=== PATIENT | female | born 1985 | race Caucasian/White ===

== ENCOUNTER 2019-02-05 00:39 | Emergency (ER) | payer OTHER ==
[2019-02-05] MEDS ORDERED: Ondansetron PF 4 MG/2 ML Vial ONE (01:08)
[2019-02-05] MEDS ORDERED: Morphine 10 MG/ML VIAL ONE (01:08)
[2019-02-05 01:53] LABS: Bacteria/HPF None Seen HPF (None Seen); Bilirubin Negative (Negative); Blood, Urine Trace (Negative); Clarity Clear (Clear); Glucose, Urine (Dipstick) Normal (Negative); Leukocyte Negative Leu/uL (Negative); Nitrite Negative (Negative); Protein, Urine (Dipstick) Negative (Neg-Trace); RBC/HPF 0-3 HPF (0-3); Squamous Epithelial 0-3 HPF (0-3); Urobilinogen Normal mg/dL (Less than 2); WBC/HPF 0-3 HPF (0-3)
[2019-02-05 02:01] LABS: Pregnancy Test - Urine (BHCG) Negative (Negative); Pregu Control Background? CLEAR/WHITE (CLR/WHITE); Pregu Control Bar Appear? YES (CONTROL BAR); Specific Gravity 1.005 (1.002-1.036)
[2019-02-05] MEDS ORDERED: Diazepam 5 MG TAB ONE (02:09)
[2019-02-05] MEDS ORDERED: Ketorolac Tromethamine 30 MG/ML VIAL ONE (02:10)
[2019-02-05] MEDS ORDERED: Ibuprofen 200 MG TAB ONE (02:10)
[2019-02-05] MEDS ORDERED: Morphine 4 MG/ML VIAL ONE (03:30)
--- NOTE | 2019-02-05 07:58 | CT ---
PRELIMINARY REPORT/[facility]/EMERGENCY AFTER HOURS PROCEDURE: PROCEDURE INFORMATION: Exam: CT Abdomen and pelvis without contrast Exam date and time: 02/05/2019 2:15 AM Clinical history: 33 years old, female; Patient HX: F34 presents to ED with C/O lower back pain that radiates down her R leg, onset 1400 today with associated nausea. Patient has chronic back pain, but reports that this pain is different and it feels like something is pinched. Patient reports that the pain worsened when she went to lie down. Denies injury or falls. Patient has 2 rods in her back from surgery for scoliosis. Reports that she had a baby 4 months ago by vaginal delivery and was stuck for her epidural 9 times. Patient had an mri done 3 weeks ago and told she had degenerative disc disease for which she will need cortisol shots. Denies bowel or bladder incontinence. Denies vaginal bleedin g and discharge. Denies fever, vomiting and abdominal pain TECHNIQUE: Imaging protocol: Computed tomography of the abdomen and pelvis without contrast. COMPARISON: No relevant prior studies available. FINDINGS: Liver: Normal. No mass. Gallbladder and bile ducts: Normal. No calcified stones. No ductal dilation. Pancreas: Normal. No ductal dilation. Spleen: Normal. No splenomegaly. Adrenals: Normal. No mass. Kidneys and ureters: Normal. No hydronephrosis. Stomach and bowel: There are prominent small bowel loops of the left upper quadrant with tapering. Th is could be due to peristalsis. Please correlate. Appendix: No evidence of appendicitis. Intraperitoneal space: Unremarkable. No free air. No significant fluid collection. Vasculature: Unremarkable. No abdominal aortic aneurysm. Lymph nodes: Unremarkable. No enlarged lymph nodes. Bladder: Unremarkable as visualized. Reproductive: Unremarkable as visualized. Bones/joints: Postoperative changes of the thoracolumbar spine with Penaloza rods for scoliosis. There is scoliosis of the lumbar spine with convexity to the left. Soft tissues: Bilateral breast implants. IMPRESSION: 1. Prominent small bowel loops of left upper quadrant with tapering probably due to peristalsis. Plea se correlate. 2. No acute appendicitis. 3. No renal stones or hydronephrosis. Thank you for allowing us to participate in the care of your patient. Dictated and Authenticated by: Sharon Talavera DO 02/05/2019 2:59 AM Central Time ([place] & [place]) FINAL REPORT CT ABDOMEN AND PELVIS NONCONTRAST: DATE: 02/05/2019. TIME: Performed on an emergency basis at 0216 hours. HISTORY: Left flank pain. FINDINGS: No comparison. Agree with the preliminary report by Dr. Talavera from [facility]. There is no CT evidence of urinary tract obstruction or calcification. Lack of contrast limits evaluation for ot her abnormalities. Gas and fluid-distended loops of proximal small bowel are noted but are of doubtf ul clinical significance. Overall appearance is not suggestive of significant obstruction. Detailed limited somewhat due to extensive metallic spray artifact from posterior spinal rods. POS: [facility]
--- NOTE | 2019-02-05 08:09 | CT ---
PRELIMINARY REPORT/[facility]/EMERGENCY AFTER HOURS PROCEDURE: PROCEDURE INFORMATION: Exam: CT Lumbar Spine Without Contrast Exam date and time: 02/05/2019 2:15 AM Clinical history: 33 years old, female; Low back pain; Patient HX: F34 presents to ED with C/O lower back pain that radiates down her R leg, onset 1400 today with associated nausea. Patient has chronic back pain, but reports that this pain is different and it feels like something is pinched. Patient re ports that the pain worsened when she went to lie down. Denies injury or falls. Patient has 2 rods in her back from surgery for scoliosis. Reports that she had a baby 4 months ago by vaginal delivery an d was stuck for her epidural 9 times. Patient had an mri done 3 weeks ago and told she had degenerati ve disc disease for which she will need cortisol shots. Denies bowel or bladder incontinence. Denies vaginal bleeding and discharge. Denies fever, vomiting and abdominal pain TECHNIQUE: Imaging protocol: Computed tomography images of the lumbar spine without contrast. COMPARISON: No relevant prior studies available. FINDINGS: Vertebrae: There are postoperative changes of the thoracolumbar spine with Penaloza rods for scolio sis. There is scoliosis of the before spine with convexity to the left. Bilateral pars defects at L5- S1. No acute fracture. Discs/Spinal canal/Neural foramina: No spinal stenosis. No neural foraminal narrowing. Soft tissues: Unremarkable. IMPRESSION: No acute process. Thank you for allowing us to participate in the care of your patient. Dictated and Authenticated by: Sharon Talavera DO 02/05/2019 3:04 AM Central Time ([place] & [place]) FINAL REPORT CT LUMBAR SPINE PERFORMED ON AN EMERGENCY BASIS: Date: 02/05/19 Time: 0216 hours HISTORY: Back pain. Prior surgery. FINDINGS: Findings agree with the preliminary report by [facility]. Posterior operative fixation and long thoracolumb ar vertical rods. No significant compromise of the central canal is apparent. Bilateral pars interart icularis defects/spondylolysis evident at the lumbosacral junction without significant spondylolisthe sis. POS: [facility]
== END 2019-02-05 03:58 | disposition home or self-care (01) ==
LOC: ERS 00:39
DX: M54.41 Lumbago with sciatica, right side (principal); F17.210 Nicotine dependence, cigarettes, uncomplicated; Z79.899 Other long term (current) drug therapy
CPT/HCPCS: 72131; 74176; 81003; 81015; 81025; 96361; 96374; 96375; 96376; J1885; J2270; J2405